=== PATIENT | male | born 1980 | race Caucasian/White ===

== ENCOUNTER 2020-07-10 16:25 | Emergency (ER) | payer SELFPAY ==
[~2020-07-10 16:25] MED LIST: NO HOME MEDICATIONS
[2020-07-10 16:29] VITALS: TEMP 99.6
[2020-07-10 16:55] LABS: BASO % 0.5 % (0.0-2.0); EOS # 0.1 (0.0-0.7); EOS % 1.3 % (0-4.0); GRAN # 5.9 (1.4-6.5); GRAN % 69.5 % (42.2-75.2); HEMATOCRIT 39.9 % (42.0-52.0); HEMOGLOBIN 13.6 g/dl (13.5-18.0); LYMPH # 1.6 (1.2-3.4); LYMPH % 19.2 % (20.0-51.0); MEAN CELL VOLUME 89 fl (80.0-100.0); MEAN CORPUSCULAR HEMOGLOBIN 30 pg (27.0-31.0); MEAN CORPUSCULAR HGB CONC 34 g/dl (33.0-37.0); MEAN PLATELET VOLUME 9.9 fl (7.4-10.4); MONO # 0.8 (0.1-0.6); PLATELET COUNT 203 K/mm3 (130-400); RED BLOOD COUNT 4.48 M/mm3 (4.20-5.60); REDCELL DISTRIBUTION WIDTH-CV 13.3 % (11.5-14.5)
[2020-07-10 16:59] LABS: PROTHROMBIN TIME 10.9 SECONDS (9.7-12.8)
[2020-07-10 17:21] LABS: ALANINE AMINOTRANSFERASE 25 U/L (4-49); ALBUMIN 3.7 gm/dL (3.5-5.0); ALKALINE PHOSPHATASE 49 U/L (50-136); ANION GAP 5 mmol/L (7-16); AST,SGOT 28 U/L (15-37); BILIRUBIN,TOTAL 0.4 mg/dL (0.0-1.0); BLOOD UREA NITROGEN 11 mg/dL (9-20); CARBON DIOXIDE 30 mmol/L (22-30); CHLORIDE 106 mmol/L (98-107); GLUCOSE 92 mg/dL (74-106); POTASSIUM 3.6 mmol/L (3.4-5.0); SODIUM 140 mmol/L (137-145); TOTAL PROTEIN 6.1 gm/dL (6.4-8.2)
[2020-07-10 17:40] LABS: ACETAMINOPHEN < 10 ug/mL (10-30); ALCOHOL(ethanol),MEDICAL < 10 mg/dL; SALICYLATE < 1.0 mg/dL
[2020-07-10 18:33] LABS: TRICYCLIC ANTIDEPRESS URINE NEGATIVE
[2020-07-10 19:52] LABS: ALANINE AMINOTRANSFERASE 22 U/L (4-49); AST,SGOT 26 U/L (15-37); BILIRUBIN,TOTAL 0.3 mg/dL (0.0-1.0)
[2020-07-10 19:54] LABS: ACETAMINOPHEN < 10 ug/mL (10-30)
[2020-07-10 21:48] VITALS: BP 128/85; PULSE 83
== END 2020-07-10 22:20 | disposition short-term general hospital (02) ==
LOC: COL.ER 16:25
PROVIDERS: Emergency Medicine
DX: T39.1X2A Poisoning by 4-Aminophenol derivatives, intentional self-harm, initial encounter (principal); T45.0X2A Poisoning by antiallergic and antiemetic drugs, intentional self-harm, initial encounter; Z20.828 Contact with and (suspected) exposure to other viral communicable diseases; Z88.6 Allergy status to analgesic agent
CPT/HCPCS: J0132; J0330; J2060; J2250; J2704; J3010; J7030; J7070

== ENCOUNTER → 2021-03-22 | Emergency (ER) | payer MEDICAID ==
[~2021-03-22] VITALS: Ht 185.4 cm; Wt 95.5 kg
[2021-03-22 12:14] VITALS: TEMP 98.4
[2021-03-22 13:15] VITALS: BP 128/75; PULSE 104
== END ==
LOC: COL.ER 12:05
DX: U07.1 COVID-19 (principal); F17.210 Nicotine dependence, cigarettes, uncomplicated

== ENCOUNTER 2021-03-23 02:41 | Emergency (ER) | payer MEDICAID | END 2021-03-23 03:10 | disposition left against medical advice (07) | LOC: COL.ER 02:41 | DX: R52 Pain, unspecified (principal) ==

== ENCOUNTER 2022-03-17 07:46 | Emergency (ER) | payer OTHER, MEDICAID ==
[~2022-03-17] VITALS: Ht 185.4 cm; Wt 95.5 kg
[2022-03-17 07:51] VITALS: TEMP 97.6
[2022-03-17 08:30] LABS: BASO # 0.1 K/mm3 (0.0-0.2); BASO % 0.7 % (0.0-2.0); EOS # 0.2 K/mm3 (0.0-0.7); EOS % 2.2 % (0.0-4.0); GRAN # 5.7 K/mm3 (1.4-6.5); GRAN % 64.9 % (42.2-75.2); HEMATOCRIT 39.5 % (42.0-52.0); HEMOGLOBIN 13.6 g/dl (13.5-18.0); LYMPH # 1.9 K/mm3 (1.2-3.4); LYMPH % 21.5 % (20.0-51.0); MEAN CELL VOLUME 87 fl (80.0-100.0); MEAN CORPUSCULAR HEMOGLOBIN 30 pg (27-31); MEAN CORPUSCULAR HGB CONC 34 g/dl (33.0-37.0); MEAN PLATELET VOLUME 9.8 fl (7.4-10.4); MONO # 0.9 K/mm3 (0.1-0.6); MONO % 9.8 % (1.7-9.3); PLATELET COUNT 200 K/mm3 (130-400); RED BLOOD COUNT 4.52 M/mm3 (4.20-5.60); REDCELL DISTRIBUTION WIDTH-CV 13.2 % (11.5-14.5)
[2022-03-17 08:48] LABS: ALANINE AMINOTRANSFERASE 15 U/L (0-55); ALBUMIN 3.9 gm/dL (3.5-5.0); ALKALINE PHOSPHATASE 64 U/L (40-150); ANION GAP 8 mmol/L (7-16); AST,SGOT 12 U/L (5-34); BILIRUBIN,TOTAL 0.6 mg/dL (0.2-1.2); BLOOD UREA NITROGEN 11 mg/dL (9-21); CALCIUM 8.9 mg/dL (8.4-10.2); CARBON DIOXIDE 27 mmol/L (22-29); CHLORIDE 106 mmol/L (98-107); CREATININE, serum 1.05 mg/dL (0.72-1.25); GLUCOSE 105 mg/dL (70-99); MAGNESIUM 2.2 mg/dL (1.6-2.6); PHOSPHOROUS 1.7 mg/dL (2.3-4.7); POTASSIUM 3.7 mmol/L (3.5-4.5); SODIUM 141 mmol/L (136-145); TOTAL PROTEIN 6.3 gm/dL (6.2-8.1)
[2022-03-17 08:55] LABS: TROPONIN-I < 0.010 ng/mL (0.00-0.033)
[2022-03-17] MEDS ORDERED: K-PHOS ORIGINA500 MG PO (12:11)
[2022-03-17 12:23] VITALS: BP 120/76; PULSE 88
== END 2022-03-17 12:23 | disposition home or self-care (01) ==
LOC: COL.ER 07:46
PROVIDERS: Emergency Medicine
DX: E83.39 Other disorders of phosphorus metabolism (principal); R55 Syncope and collapse; F17.210 Nicotine dependence, cigarettes, uncomplicated; Z28.310 Unvaccinated for COVID-19; W01.198A Fall on same level from slipping, tripping and stumbling with subsequent striking against other object, initial encounter; Y92.002 Bathroom of unspecified non-institutional (private) residence as the place of occurrence of the external cause
CPT/HCPCS: J2405